=== PATIENT | female | born 1990 | race Caucasian/White ===

== ENCOUNTER 2023-07-16 12:35 | Inpatient (IN) ==
[2023-07-16] MEDS ORDERED: Lidocaine 1% VIAL 10 MG/ML 30 ML VIAL INJ PRN (14:49)
[2023-07-16] MEDS ORDERED: Lactated Ringers 1000 ml BAG 1,000 ML IV ONE (14:49)
[2023-07-16 15:03] LABS: Urine Benzodiazepine Screen None Detected (None Detect); Urine Cannabinoids Screen None Detected (None Detect); Urine Opiates Screen None Detected (None Detect)
[2023-07-16 15:14] LABS: Urine Creatinine Concentration 81.16 mg/dL (20.00-320.00); Urine TP Creat Ratio 0.11 mg/mg
[2023-07-16 15:40] LABS: Urine Appearance Clear; Urine Bilirubin Negative (Negative); Urine Blood Negative (Negative); Urine Color Light-Yellow; Urine Glucose Negative (Negative); Urine Ketones Negative (Negative); Urine Nitrite Negative (Negative); Urine Protein Negative (Negative); Urine Specific Gravity 1.014 (1.002-1.030); Urine Urobilinogen Negative (Negative); Urine pH 6.5 (5.0-8.0)
[2023-07-16 15:45] LABS: ABS Lymphocytes 1.4 10^3/uL (1.0-4.8); ABS Monocytes 0.4 10^3/uL (0.0-0.9); ABS Neutrophils 7.7 10^3/uL (1.5-7.6); ABS Nucleated RBC 0.01 10^3/ul; Eosinophil % 0.3 %; Hematocrit 33.6 % (35-45); Hemoglobin 11.4 g/dL (11.5-14.3); Lymphocyte % 14.8 %; Mean Corpuscular Hemoglobin 26.7 pg (27-33); Mean Corpuscular Hgb Conc 34.1 g/dL (31-36); Mean Corpuscular Volume 78.3 fL (80-97); Mean Platelet Volume 8.5 fL (7.5-11.2); Nucleated Red Blood Cells % 0.1 %/100WBC (0.0-0.8); Platelet Count 252 10^3/uL (150-450); Red Blood Count 4.29 10^6/uL (3.63-4.92); Red Cell Distribution Width 15.7 % (12-17); White Blood Count 9.6 10^3/uL (3.8-11.8)
[2023-07-16 15:57] LABS: Urine Bacteria 1+ /HPF (Absent); Urine Red Blood Cell 1+(3-5/hpf) /HPF (0-Trace); Urine Squamous Epithelial Cell Present /HPF (Absent); Urine White Blood Cell Trace(0-5/hpf) /HPF (0-Trace)
[2023-07-16 16:12] LABS: Albumin 3.4 g/dL (3.2-5.2); Albumin/Globulin Ratio 1.3 (1-3); Calcium 9.3 mg/dL (8.6-10.3); Creatinine, Serum 0.33 mg/dL (0.51-0.95); Globulin 2.7 g/dL (2-4); Potassium 3.8 mmol/L (3.5-5.0); Total Bilirubin 0.9 mg/dL (0.2-1.0); Total Protein 6.1 g/dL (6.4-8.9); Uric Acid 4.6 mg/dL (2.3-6.6); eGFR CKD-EPI 139.4 (>60)
[2023-07-16] MEDS: Dinoprostone 10 MG VAG.SUPP VAGINAL ONE (17:49)
[2023-07-16] MEDS: Buffered Lidocaine 1% SYRIN 1 ml INTRADERM ONE ×2 (19:38)
[2023-07-17] MEDS: miSOPROStol 100 mcg TAB VAGINAL ONE ×2 (08:56→14:40)
[2023-07-17] MEDS: miSOPROStol 100 mcg TAB PO ONE (18:45)
[2023-07-18] MEDS: miSOPROStol 100 mcg TAB PO ONE (01:43)
[2023-07-18] MEDS: miSOPROStol 100 mcg TAB PO SCH (14:49)
[2023-07-18] MEDS: Calcium Carb (TUMS) 500 mg CHEW TAB PO PRN (21:20)
[2023-07-18] MEDS: Oxytocin in LR 20,000 MILLI.UNIT/1,000 ML BAG IV SCH (21:21)
[2023-07-18] MEDS: Lactated Ringers 1000 ml BAG 1,000 ML IV SCH (21:21)
[2023-07-19] MEDS ORDERED: fentaNYL 100 mcg/2 ml 50 MCG/ML VIAL ONE (01:34)
[2023-07-19] MEDS: OBEPIDURAL (200 ML) 200 ML EPIDURAL SCH (02:15)
[2023-07-19] MEDS ORDERED: Phenylephrine 40 mcg/mL 10mL (400mcg) SYRINGE IV PUSH PRN ×2 (02:20)
[2023-07-19] MEDS ORDERED: Lactated Ringers 1000 ml BAG 1,000 ML IV ONE (02:20)
[2023-07-19] MEDS ORDERED: Sodium Citrate/Citric Acid LIQ 15 ML UDC PO PRN (02:20)
[2023-07-19 03:15] LABS: Urine Appearance Clear; Urine Bilirubin Negative (Negative); Urine Blood Negative (Negative); Urine Color Yellow; Urine Glucose Negative (Negative); Urine Ketones 2+ (Negative); Urine Nitrite Negative (Negative); Urine Protein Trace (Negative); Urine Specific Gravity 1.024 (1.002-1.030); Urine Urobilinogen Negative (Negative); Urine pH 5.5 (5.0-8.0)
[2023-07-19] MEDS ORDERED: Glycerin ADULT 2.4 gm SUPP PR PRN (08:51)
[2023-07-19] MEDS ORDERED: Lactated Ringers 1000 ml BAG 1,000 ML IV SCH (09:00)
[2023-07-19] MEDS: Dibucaine 1% OINT 28.35 GM TUBE PR PRN (10:44)
[2023-07-19] MEDS: Witch Hazel PAD JAR TOPICAL PRN (10:45)
[2023-07-19] MEDS: Oxytocin in LR 20,000 MILLI.UNIT/1,000 ML BAG IV SCH (10:45)
[2023-07-19] MEDS: Lidocaine 1.5% EPI 1:200,000 30 ML SDV ONE (18:08)
[2023-07-19] MEDS: OBEPIDURAL (200 ML) 200 ML EPIDURAL ONE (18:09)
[2023-07-20 06:29] LABS: ABS Eosinophils 0.1 10^3/uL (0.0-0.5); ABS Lymphocytes 1.8 10^3/uL (1.0-4.8); ABS Monocytes 0.6 10^3/uL (0.0-0.9); ABS Neutrophils 7.9 10^3/uL (1.5-7.6); ABS Nucleated RBC 0.01 10^3/ul; Eosinophil % 0.7 %; Hematocrit 24.9 % (35-45); Hemoglobin 8.4 g/dL (11.5-14.3); Lymphocyte % 17.5 %; Mean Corpuscular Hemoglobin 26.7 pg (27-33); Mean Corpuscular Hgb Conc 33.9 g/dL (31-36); Mean Corpuscular Volume 78.8 fL (80-97); Nucleated Red Blood Cells % 0.1 %/100WBC (0.0-0.8); Platelet Count 211 10^3/uL (150-450); Red Blood Count 3.16 10^6/uL (3.63-4.92); Red Cell Distribution Width 16.1 % (12-17); White Blood Count 10.4 10^3/uL (3.8-11.8)
[2023-07-20] MEDS: Iron Sucrose 200 MG in NS 0.9% 100 ml BAG 100 ML IVPB ONE (16:44)
[2023-07-21 07:52] VITALS: BP 152/84
== END 2023-07-21 16:15 | disposition home or self-care (01) | DRG 560 ==
LOC: MCHOBOUT 12:35 → MCHOB 14:19
PROVIDERS: ADMIT Obstetrics & Gynecology; ATTEND Obstetrics & Gynecology